=== PATIENT | female | born 2005 | race Caucasian/White ===

== ENCOUNTER 2025-03-04 18:16 | Outpatient (CLI) | payer MEDICAID, SELFPAY ==
[2025-03-04 20:50] LABS: Chlamydia DNA Amplified* NOT DETECTED (No Detected); GC DNA Amplified* NOT DETECTED (No Detected)
== END 2025-03-04 18:17 | disposition home or self-care (01) ==
LOC: NFLDREF 18:17
PROVIDERS: Visit Provider Registered Nurse
DX: Z30.430 Encounter for insertion of intrauterine contraceptive device (principal)
CPT/HCPCS: 87491; 87591